=== PATIENT | female | born 1935 | race Caucasian/White ===

== ENCOUNTER 2018-05-08 18:06 | Emergency (ER) | payer MEDICARE, OTHER ==
[~2018-05-08] VITALS: Ht 167.6 cm; Wt 58.0 kg
[~2018-05-08 18:06] MED LIST: ALPR.5 PO; AMLO5 PO; ASPI81EC PO; DIVA500EC PO; DIVA500ER PO; DOXE25 PO; FAMO20 PO; HYOS0.375T PO; HYOSCYAMINE0.375 M1 PO; OXYACE5T PO; PROP60 PO; SERT50 PO
[2018-05-08] MEDS ORDERED: ALEN70 PO (18:47)
[2018-05-08] MEDS ORDERED: Amlodipine Bes2.5 MG PO (18:48)
[2018-05-08] MEDS ORDERED: METO25ER PO (18:49)
[2018-05-08] MEDS ORDERED: LATANOPROST2.5 ML (18:52)
[2018-05-08] MEDS ORDERED: TIMO10T (18:52)
[2018-05-08] MEDS ORDERED: XARELTO15 MG PO (19:12)
== END 2018-05-08 20:00 | disposition home or self-care (01) ==
LOC: ER 18:06
DX: I82.402 Acute embolism and thrombosis of unspecified deep veins of left lower extremity (principal); I10 Essential (primary) hypertension; F03.90 Unspecified dementia, unspecified severity, without behavioral disturbance, psychotic disturbance, mood disturbance, and anxiety; F31.9 Bipolar disorder, unspecified; G40.909 Epilepsy, unspecified, not intractable, without status epilepticus; Z88.8 Allergy status to other drugs, medicaments and biological substances; Z79.899 Other long term (current) drug therapy
CPT/HCPCS: 93971; 99284

== ENCOUNTER 2018-05-26 09:30 | Emergency (ER) | payer MEDICARE, OTHER ==
[~2018-05-26] VITALS: Ht 167.6 cm; Wt 56.7 kg
[~2018-05-26 09:30] MED LIST changes: +ALEN70 PO; +Amlodipine Bes2.5 MG PO; +LATANOPROST2.5 ML; +METO25ER PO; +TIMO10T; +XARELTO15 MG PO
== END 2018-05-26 12:15 | disposition home or self-care (01) ==
LOC: ER 09:30
DX: S80.02XA Contusion of left knee, initial encounter (principal); I82.512 Chronic embolism and thrombosis of left femoral vein; I82.532 Chronic embolism and thrombosis of left popliteal vein; F03.90 Unspecified dementia, unspecified severity, without behavioral disturbance, psychotic disturbance, mood disturbance, and anxiety; F31.9 Bipolar disorder, unspecified; I10 Essential (primary) hypertension; G40.909 Epilepsy, unspecified, not intractable, without status epilepticus; Z79.01 Long term (current) use of anticoagulants; Z88.8 Allergy status to other drugs, medicaments and biological substances; Z79.899 Other long term (current) drug therapy; X58.XXXA Exposure to other specified factors, initial encounter
CPT/HCPCS: 93971; 99284-25

== ENCOUNTER 2018-09-28 05:48 | Emergency (ER) | payer MEDICARE, OTHER ==
[~2018-09-28] VITALS: Ht 165.1 cm; Wt 58.1 kg
[~2018-09-28 05:48] MED LIST changes: +Lovenox60 MG/0.6 SC
== END 2018-09-28 07:28 | disposition home or self-care (01) ==
LOC: ER 05:48
DX: I82.412 Acute embolism and thrombosis of left femoral vein (principal); I82.432 Acute embolism and thrombosis of left popliteal vein; Z88.8 Allergy status to other drugs, medicaments and biological substances; F03.90 Unspecified dementia, unspecified severity, without behavioral disturbance, psychotic disturbance, mood disturbance, and anxiety; F31.9 Bipolar disorder, unspecified; I10 Essential (primary) hypertension; G40.909 Epilepsy, unspecified, not intractable, without status epilepticus; Z79.899 Other long term (current) drug therapy; Z79.01 Long term (current) use of anticoagulants
CPT/HCPCS: 93971; 99284-25

== ENCOUNTER 2018-12-04 06:25 | Day surgery (SDC) | payer MEDICARE, OTHER ==
[~2018-12-04] VITALS: Ht 160 cm; Wt 59.0 kg
[~2018-12-04 06:25] MED LIST changes: +B-COMPLEX WITH1 EAC1 PO; +CVS CALCIUM PO; +Ferosul325 MG PO; +LATANOPROST 0.7.5 ML BOTHEYES; +METAMUCIL SUGA283 GM PO; +PROBIOTIC1 EAC1 PO; +Toprol Xl25 MG PO; +Vitamin E400 UNI4 PO
--- NOTE | 2018-12-04 09:26 | NUR ---
PT AMBULATES TO AND FROM RESTROOM WITH WALKER WITHOUT DIFF. PT R FEMORAL VEIN SITE REMAINS STABLE. NO BLEEDING OR HEMATOMA NOTED. VSS. CALL LIGHT WITHIN REACH. FAMILY AT BEDSIDE.
--- NOTE | 2018-12-04 10:28 | NUR ---
PT AND FAMILY VERBALIZES UNDERSTANDING WRITTEN AND VERBAL ORDERS. VSS. NADN. R FEMORAL VEIN REMAINS STABLE. PT IV DC'D. CATH INTACT. PRESSURE DSG APPLIED. PT DC TO HOME VIA FAMILY BY DEVENDRA.
== END 2018-12-04 10:30 | disposition home or self-care (01) ==
LOC: MHTC 06:25
DX: I82.91 Chronic embolism and thrombosis of unspecified vein (principal); I10 Essential (primary) hypertension; E78.5 Hyperlipidemia, unspecified; K21.9 Gastro-esophageal reflux disease without esophagitis; K58.9 Irritable bowel syndrome, unspecified; F31.9 Bipolar disorder, unspecified; F03.90 Unspecified dementia, unspecified severity, without behavioral disturbance, psychotic disturbance, mood disturbance, and anxiety; M81.0 Age-related osteoporosis without current pathological fracture
CPT/HCPCS: 37191; 99152; 99153; C1769; C1880; C1894; J1644; J2250; J7030; J7040; Q9967

== ENCOUNTER → 2019-07-25 | Outpatient (CLI) | payer MEDICARE, OTHER | END | disposition home or self-care (01) | LOC: LAB EV 15:00 → LAB SHORT 15:00 | DX: R35.0 Frequency of micturition (principal) | CPT/HCPCS: 87086 ==

== ENCOUNTER → 2020-04-05 | Outpatient (CLI) | payer MEDICARE, OTHER | DX: N39.0 Urinary tract infection, site not specified (principal) ==